=== PATIENT | male | born 1960 | race Caucasian/White ===

== ENCOUNTER 2018-01-05 14:18 | Outpatient (CLI) ==
--- NOTE | 2018-01-05 14:49 | DI ---
Exam: Three x-rays of the left foot. Comparison: None available. Reason for exam: Pain in left foot. FINDINGS: No acute fracture or malalignment. The joint spaces are well maintained. No unexplained calcific soft tissue density or radiopaque retained foreign body. There is spurring of the calcaneus . Calcifications are seen in the expected location of the Achilles tendon. Impression: 1. Spurring in the calcaneus with calcifications in the expected location of the Achilles tendon. I maging findings are most consistent with degenerative disease and previous injury. 2. No acute fracture or malalignment is seen in the left foot.
== END 2018-01-05 14:19 | disposition home or self-care (01) ==
LOC: RAD 14:18
PROVIDERS: ATTEND Family Medicine
DX: M79.672 Pain in left foot (principal)